=== PATIENT | male | born 2000 | race Hispanic/Latino ===

== ENCOUNTER 2020-01-12 11:49 | Emergency (ER) | payer OTHER, SELFPAY ==
[2020-01-12 12:10] VITALS: BP 125/85; PULSE 95; RESP 18; TEMP 36.8; O2SAT 98; BMI 20.3
--- NOTE | 2020-01-12 12:28 | ED_ITS ---
HPI - Skin/Abscess/Foreign Bdy <VLADISLAV Frank - Last Filed: 01/12/20 15:31> General Chief complaint: Skin/Abscess/Foreign Body Stated complaint: rash spreading over his arms and chest Time Seen by Provider: 01/12/20 12:10 Source: patient Mode of arrival: Ambulatory Limitations: no limitations History of Present Illness HPI narrative: The patient is a 20-year-old male nonsmoker who denies pertinent medical history who presents with a chief complaint of a rash spreading across his chest and back. He states this started yesterday, after he went hiking. He states is very itchy, not painful. He denies any fevers nausea vomiting or diarrhea. He denies any swelling of lips face or tongue. He denies any shortness of breath or cough. He denies any no new creams, lotions, dryer sheets etcetera, though did note that he was hiking right before it started. Subsequently he took Benadryl last night to help with the itch Related Data Previous Rx's Medication Instructions Recorded hydroxyzine HCl 50 mg PO TID PRN #10 tab 01/12/20 prednisone 40 mg PO DAILY 5 Days #10 tab 01/12/20 Allergies Allergy/AdvReac Type Severity Reaction Status Date / Time No Known Drug Allergies Allergy Verified 01/12/20 12:27 Review of Systems <VLADISLAV Frank - Last Filed: 01/12/20 15:31> Review of Systems Narrative: GENERAL: Denies chills, fatigue, malaise, fever, sweats. HEENT: Denies sinus pain, ear pain, sore throat, difficulty swallowing, dizziness. RESPIRATORY: Denies dyspnea, cough, wheezing, hemoptysis, sputum. CARDIOVASCULAR: Denies chest pain, palpitations, orthopnea, edema, GASTROINTESTINAL: Denies nausea, vomiting, abdominal pain, diarrhea, constipation, melena. : Denies dysuria, frequency, incontinence, hematuria, urinary retention. MUSCULOSKELETAL: denies weakness, joint pain, or bony pain SKIN: See HPI NEUROLOGIC: Denies weakness, headache, numbness, change in speech, confusion, seizures, incoordination. PSYCHIATRIC: No concerning psychosocial issues. 12 point review of systems is negative except for those stated above Patient History <VLADISLAV Frank - Last Filed: 01/12/20 15:31> Social History Smoking Status: Never smoker Smoking Status: Never smoker alcohol intake frequency: holidays/special occasions only Substance Use Type: does not use Exam <MARS Frank - Last Filed: 01/12/20 15:31> Narrative Exam Narrative: GENERAL: This is a well-nourished, well-developed patient, in no acute distress HEAD: Atraumatic. Normocephalic. No temporal or scalp tenderness. EYES: Pupils equal round and reactive. Extraocular motions intact. No scleral icterus. No injection or drainage. ENT: Nose without bleeding, purulent drainage or septal hematoma. Throat without erythema, tonsillar hypertrophy or exudate. Uvula midline. Airway patent. No swelling of the lips face or tongue NECK: Trachea midline. No JVD or lymphadenopathy. Supple, nontender, no meningeal signs. CARDIOVASCULAR: Regular rate and rhythm RESPIRATORY: Clear to auscultation. Breath sounds equal bilaterally. No wheezes, rales, or rhonchi. No cough. No increased respiratory effort. No accessory muscle use. EXTREMITIES: No clubbing, cyanosis, or edema. No joint tenderness, effusion, or edema noted. BACK: Nontender without deformity or crepitance. No flank tenderness. NEURO: AOx3. SKIN: Macular papular erythematous rash across chest abdomen and back. In streaking pattern. No vesicles noted. No oral rash. Initial Vital Signs Initial Vital Signs: Vital Signs Temperature 98.2 F 01/12/20 12:10 Pulse Rate 95 H 01/12/20 12:10 Respiratory Rate 18 01/12/20 12:10 Blood Pressure 125/85 01/12/20 12:10 Pulse Oximetry 98 01/12/20 12:10 <Thomas Mclean MD - Last Filed: 01/12/20 18:30> Initial Vital Signs Initial Vital Signs: Vital Signs Temperature 98.2 F 01/12/20 12:10 Pulse Rate 95 H 01/12/20 12:10 Respiratory Rate 18 01/12/20 12:10 Blood Pressure 125/85 01/12/20 12:10 Pulse Oximetry 98 01/12/20 12:10 Course <MARS Frank - Last Filed: 01/12/20 15:31> Vital Signs Vital signs: Vital Signs - 8 hr 01/12/20 12:10 Temperature 98.2 F Pulse Rate 95 H Respiratory Rate 18 Blood Pressure 125/85 Pulse Oximetry 98 <Thomas Mclean MD - Last Filed: 01/12/20 18:30> Vital Signs Vital signs: Vital Signs - 8 hr 01/12/20 12:10 Temperature 98.2 F Pulse Rate 95 H Respiratory Rate 18 Blood Pressure 125/85 Pulse Oximetry 98 MDM - Skin/Abscess/Foreign Bdy <VLADISLAV Frank - Last Filed: 01/12/20 15:31> MDM Narrative Medical decision making narrative: The patient is a 20-year-old male who presents with a chief complaint of an itchy rash over his chest, torso and states it is on his upper thighs as well. It is in a streaky pattern, suggesting exposure to possible plant while hiking. He has no hives, no swelling of his lips face or tongue. His rash is very itchy. I discussed at length monitoring for exposures as well as monitoring for swelling of the lips face or tongue. Will place patient on prednisone given prescription of hydroxyzine with strict instructions to not combine the Benadryl. Discussed at length follow up with primary care provider in the next few days when he goes home. Patient has no questions or concerns upon discharge and states understanding of return precautions as well as follow-up care. Discharge Plan Departure Patient Disposition: Home Clinical Impression: Contact dermatitis Qualifiers: Contact dermatitis type: unspecified Contact dermatitis trigger: unspecified trigger Qualified Code(s): L25.9 - Unspecified contact dermatitis, unspecified cause Discharge Date/Time: 01/12/20 12:40 Instructions: DI for Contact Dermatitis Activity Restrictions/Additional Instructions: Thank you for trusting us with your care today. Your rash correlates with a contact dermatitis. I sent 2 prescriptions to [facility] in [place]. This includes a prescription of prednisone as well as hydroxyzine. Do not combine the hydroxyzine with Benadryl or any other type 1 antihistamine. It can make you sleepy. As discussed, please follow-up with your primary care provider when you go back home. Please come back to the emergency department for any acute concerns such as swelling of the lips face or tongue etcetera. It is difficult to know exactly what is setting off your skin right now, so please follow-up with primary care provider. Prescriptions: New prednisone 20 mg tablet 40 mg PO DAILY 5 Days Qty: 10 RF: 0 hydroxyzine HCl 50 mg tablet 50 mg PO TID PRN (Reason: itching) Qty: 10 RF: 0 <Thomas Mclean MD - Last Filed: 01/12/20 18:30> Cosign ED Attending Sandraature Attestation: I was immediately available in the department for consultation. This documentation has been reviewed and I agree with assessment and plan. Supervised by Thomas Mclean MD
== END 2020-01-12 12:40 | disposition home or self-care (01) ==
PROVIDERS: Emergency Provider Nurse Practitioner Family
DX: L25.9 Unspecified contact dermatitis, unspecified cause (principal)
CPT/HCPCS: 99281